=== PATIENT | female | born 2000 | race Two or more races ===

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

== ENCOUNTER 2021-06-14 19:59 | Emergency (ER) | payer SELFPAY ==
[~2021-06-14] VITALS: Ht 162.6 cm; Wt 55.9 kg
[~2021-06-14 19:59] MED LIST changes: +CEPH500C PO; +CEPH500T PO
[2021-06-14 20:14] VITALS: BP 128/79
--- NOTE | 2021-06-14 20:36 | PHYS DOC ---
Past Medical History Past Medical History: High Cholesterol Additional Past Medical Histor: OBESITY, Hidradenitis suppurativa Past Surgical History: Cholecystectomy, Additional Past Surgical Histo: GB 11/20/2019 Smoking Status: Never Smoker Alcohol Use: None Drug Use: None General Adult EDM: Chief Complaint: WOUND CHECK HPI: HPI: Patient is a 21-year-old female that presents today with a suture that was pulled out. Patient states she was here last evening and was seen for an abscess that had already started draining, the emergency room physician did open it up and explore the wound, he did place 1 suture in the wound, and today's p atient states she noticed that the suture had come loose and the area was open. Patient does have Hidradenitis suppurativa and she has multiple areas of open draining abscesses in her axilla area, she states that she is followed by her primary care physician at [facility], she has also seen dermatology and plastic surgery at [facility]. Patient states she is having some issues with resources she has no insurance and she is trying to obtain insurance at this time to get this treated. Patient states she did get her antibiotic filled today that was prescribed for her yesterday and she is taking it. She also states she has some clindamycin ointment that she is supposed to be on and she is also taken doxycycline in the past. Review of Systems: Review of Systems: Constitutional: Denies fever or chills. [] Eyes: Denies change in visual acuity. [] HENT: Denies nasal congestion or sore throat. [] Respiratory: Denies cough or shortness of breath. [] Cardiovascular: Denies chest pain or edema. [] GI: Denies abdominal pain, nausea, vomiting, bloody stools or diarrhea. [] : Denies dysuria. [] Musculoskeletal: Denies back pain or joint pain. [] Integument: Open wound to left axilla area and a fold Neurologic: Denies headache, focal weakness or sensory changes. [] Endocrine: Denies polyuria or polydipsia. [] Lymphatic: Denies swollen glands. [] Psychiatric: Denies depression or anxiety. [] Heart Score: C/O Chest Pain: N/A Risk Factors: Risk Factors: DM, Current or recent (<one month) smoker, HTN, HLP, family history of CAD, obesity. Risk Scores: Score 0 - 3: 2.5% MACE over next 6 weeks - Discharge Home Score 4 - 6: 20.3% MACE over next 6 weeks - Admit for Clinical Observation Score 7 - 10: 72.7% MACE over next 6 weeks - Early Invasive Strategies Allergies: Allergies: Allergies Coded Allergies Type Severity Reaction Last Updated Verified No Known Drug Allergies 11/21/19 No Physical Exam: PE: Constitutional: Well developed, well nourished, no acute distress, non-toxic appearance. [] HENT: Normocephalic, atraumatic, bilateral external ears normal, oropharynx moist, no oral exudates, nose normal. [] Eyes: PERRLA, EOMI, conjunctiva normal, no discharge. [] Neck: Normal range of motion, no tenderness, supple, no stridor. [] Cardiovascular:Heart rate regular rhythm, no murmur [] Lungs & Thorax: Bilateral breath sounds clear to auscultation [] Abdomen: Bowel sounds normal, soft, no tenderness, no masses, no pulsatile masses. [] Skin: Patient has a 1.5 x 1.5 open circular area in the left axilla area approximately 4 inches below her axilla, area is open and bleeding scant amount, area is tender to touch, there is no redness warmth from the area. Suture is seen and it is just hanging on one side. Patient's right axilla area there is approximately a 1 cm open area that is also draining at this time, Back: No tenderness, no CVA tenderness. [] Extremities: No tenderness, no cyanosis, no clubbing, ROM intact, no edema. [] Neurologic: Alert and oriented X 3, normal motor function, normal sensory function, no focal deficits noted. [] Psychologic: Affect normal, judgement normal, mood normal. [] Current Patient Data: Vital Signs: Vital Signs Date Time Temp Pulse Resp B/P (MAP) Pulse Ox O2 Delivery O2 Flow Rate FiO2 06/14/21 20:14 97.6 102 16 128/79 (95) 94 Room Air 97.6 EKG: EKG: [] Radiology/Procedures: Radiology/Procedures: [] Course & Med Decision Making: Course & Med Decision Making Pertinent Labs and Imaging studies reviewed. (See chart for details) Suture was removed, sterile gauze and Hypafix tape used as dressing on this area. Did confer with Dr. Maier and he at this time does not feel that a stitch would be in the best interest of the patient due to the drainage that is coming from the area and her past medical history of Hidradenitis suppurativa. Did inform patient to continue to take the antibiotics that were prescribed for her last night, inform her to keep the area clean and dry watching for any signs and symptoms of increased infection, did have her follow-up with her primary care physician. Did inform her to go to the [employer] to help with the benefits or to follow-up with [facility] and asked for social security benefits interviewer to help obtain insurance for that this time. Patient verbalized understanding is agreeable to the plan of care. Tereso Disclaimer: Tereso Disclaimer: This electronic medical record was generated, in whole or in part, using a voice recognition dictation system. Departure Departure Impression: Primary Impression: Hidradenitis suppurativa of left axilla Disposition: HOME / SELF CARE / HOMELESS Condition: STABLE Referrals: NO PCP (PCP) Patient Instructions: Abscess, Care After Additional Instructions: Website for applying for medical insurance: www.benefits.gov Keep taking the medication that was prescribed yesterday Keep the area clean and dry watching for any signs and symptoms of infection Follow-up with your primary care physician for any further management of this. KRISHNA RENEE APRN Jun 14, 2021 20:36
== END 2021-06-14 20:39 | disposition home or self-care (01) ==
LOC: ER 19:59
DX: L73.2 Hidradenitis suppurativa (principal); E78.00 Pure hypercholesterolemia, unspecified; E66.9 Obesity, unspecified; Z68.21 Body mass index [BMI] 21.0-21.9, adult
CPT/HCPCS: 99281